=== PATIENT | female | born 1985 | race Two or more races ===

== ENCOUNTER 2021-05-31 20:39 | Emergency (ER) | payer BC ==
[~2021-05-31 20:39] MED LIST: Iopamidol-370 76% 500 ML 1 ML ONE
[2021-05-31] MEDS ORDERED: Mag-Al 1200 mg/1200 mg/30 ML UDCUP ONE (22:00)
[2021-05-31] MEDS ORDERED: Lidocaine Viscous Sol 2% 15 ml UD Cup ONE (22:00)
[2021-05-31 22:36] LABS: #Eosinphils 0.1 thou/uL (0.0-0.7); #Monocytes 0.4 thou/uL (0.11-0.59); %Basophils 0.1 % (0.0-1.0); %Eosinophils 2.1 % (0.0-10.0); %Lymphocytes 14.8 % (21.0-51.0); %Monocytes 6.3 % (0.0-10.0); %Neutrophils 76.6 % (42.0-75.0); Hemoglobin 13.3 g/dL (12.0-16.0); Mean Corpuscular HGB CONC 34.9 g/dL (32.0-36.0); Mean Corpuscular Hemoglobin 30.2 pg (27.0-31.0); Mean Corpuscular Volume 86.6 fL (78.0-98.0); Mean Platelet Volume 7.3 fL (7.4-10.4); Platelet Count 289 thou/uL (130-400); RBC Distribution Width 11.7 % (11.5-14.5); Red Blood Cell (RBC) Count 4.41 mill/uL (4.20-5.40); White Blood Cell (WBC) Count 6.5 thou/uL (4.8-10.8)
[2021-05-31 22:48] LABS: BHCG - Serum Negative (NEGATIVE); Pregs Control Background? CLEAR/WHITE (CLR/WHITE); Pregs Control Bar Appear? YES (CONTROL BAR)
[2021-05-31 22:58] LABS: ALT (SGPT) 15 U/L (8-55); AST (SGOT) 25 U/L (5-34); Albumin 4.2 g/dL (3.5-5.0); Alkaline Phosphatase 44 U/L (40-110); Anion Gap 14 mmol/L (10-20); BUN (Urea Nitrogen) 9 mg/dL (7.0-18.7); Bilirubin, Total 0.6 mg/dL (0.2-1.2); Calc. Creatinine Clearance 0 mL/min (70-130); Calcium 9.1 mg/dL (7.8-10.44); Carbon Dioxide 25 mmol/L (22-29); Chloride 104 mmol/L (98-107); Globulin 2.9 g/dL (2.4-3.5); Glucose 100 mg/dL (70-105); Lipase 23 U/L (8-78); Potassium 4.1 mmol/L (3.5-5.1); Protein, Total 7.1 g/dL (6.0-8.3); Sodium 139 mmol/L (136-145)
[2021-06-01] MEDS ORDERED: Lorazepam 2 MG/ML VIAL ONE (00:03)
[2021-06-01] MEDS ORDERED: Metoclopramide HCl 10 MG/2 ML VIAL ONE (00:03)
== END 2021-06-01 02:25 | disposition home or self-care (01) ==
LOC: ERS 20:39
DX: F45.8 Other somatoform disorders (principal); R59.9 Enlarged lymph nodes, unspecified; R11.2 Nausea with vomiting, unspecified; I10 Essential (primary) hypertension
CPT/HCPCS: 36415; 71260; 74177; 80053; 83690; 84484; 84703; 85025; 85652; 86140; 93005; 96374; J2060; J2765; Q9967

== ENCOUNTER 2021-06-03 12:58 | Outpatient (CLI) | payer BC ==
[~2021-06-03 12:58] MED LIST changes: +Iopamidol 370 76% 100 ML VIAL ONE; -Iopamidol-370 76% 500 ML 1 ML ONE
== END 2021-06-03 12:59 | disposition home or self-care (01) ==
LOC: CT 12:58
PROVIDERS: ATTEND Nurse Practitioner Family
DX: R59.0 Localized enlarged lymph nodes (principal)
CPT/HCPCS: 70491; Q9967